=== PATIENT | female | born 2000 | race Caucasian/White ===

== ENCOUNTER 2021-02-06 20:25 | Emergency (ER) | payer BC ==
[~2021-02-06] VITALS: Ht 167.6 cm; Wt 72.7 kg
[2021-02-06 20:31] VITALS: TEMP 97.5
[2021-02-06 22:16] VITALS: BP 132/70; PULSE 70
== END 2021-02-06 22:16 | disposition home or self-care (01) ==
LOC: COL.ER 20:25
DX: S63.601A Unspecified sprain of right thumb, initial encounter (principal); W51.XXXA Accidental striking against or bumped into by another person, initial encounter